=== PATIENT | male | born 1975 | race Caucasian/White ===

== ENCOUNTER 2018-05-01 05:05 | Emergency (ER) | payer BC ==
[2018-05-01] MEDS ORDERED: Alum Hydroxide/Mag Hydroxide 30 ML, Lidocaine 2% 15 ML PO ONE ×4 (05:53→06:18)
--- NOTE | 2018-05-01 05:58 | EDM.PDOC ---
ED HPI GENERAL MEDICAL PROBLEM - General Chief Complaint: Abdominal Pain Stated Complaint: STOMACH PAIN Time Seen by Provider: 05/01/18 05:45 Source of Information: Reports: Patient, Family History Limitations: Reports: No Limitations - History of Present Illness INITIAL COMMENTS - FREE TEXT/NARRATIVE: c/o epigastric pain x 2.5h ate shrimp and potato skins at 10p, [place] at [place] when left, awoke 3a, still awake when returned home at 4a taken no meds no prior abd surgery, no prior epigastirc pain, no radiation, no n/v, no f/c/d abdomen Pain Score (Numeric/FACES): 6 - Related Data Allergies Allergy/AdvReac Type Severity Reaction Status Date / Time Penicillins Allergy Hives Verified 05/01/18 05:23 Home Meds: Home Meds Albuterol [Ventolin HFA] 1 - 2 puff INH Q4H PRN 05/01/18 [History] Pantoprazole Sodium 40 mg PO DAILY 05/01/18 [History] Sucralfate 1 gm PO QID #20 tablet 05/01/18 [Rx] Past Medical History HEENT History: Reports: Other (See Below) Other HEENT History: Nasal congestion. Respiratory History: Reports: Asthma, Other (See Below) Other Respiratory History: Occasional asthma related to work environment, uses an inhaler PRN. Gastrointestinal History: Reports: GERD, Other (See Below) Other Gastrointestinal History: Takes medication for GERD daily. Social & Family History - Tobacco Use Smoking Status *Q: Current Every Day Smoker Years of Tobacco use: 20 Packs/Tins Daily: 1 - Alcohol Use Days Per Week of Alcohol Use: 7 Number of Drinks Per Day: 2 Total Drinks Per Week: 14 - Recreational Drug Use Recreational Drug Use: No Other Recreational Drug Type: Denies recreational drug use. 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 Denies: Nausea, Vomiting : Reports: No Symptoms Musculoskeletal: Reports: No Symptoms Skin: Reports: No Symptoms Neurological: Reports: No Symptoms Psychiatric: Reports: No Symptoms Hematologic/Lymphatic: Reports: No Symptoms Immunologic: Reports: No Symptoms ED EXAM, GI/ABD - Physical Exam Exam: See Below Exam Limited By: No Limitations General Appearance: Alert, WD/WN, Mild Distress, Other (leaning forward, rocking slightly) Nose: Normal Inspection, Normal Mucosa, No Blood Throat/Mouth: Normal Inspection, Normal Lips, Normal Teeth, Normal Gums, Normal Oropharynx, Normal Voice, No Airway Compromise Head: Atraumatic, Normocephalic Neck: Normal Inspection, Supple, Non-Tender, Full Range of Motion Respiratory/Chest: No Respiratory Distress, Lungs Clear, Normal Breath Sounds, No Accessory Muscle Use, Chest Non-Tender Cardiovascular: Regular Rate, Rhythm, No Edema, No Gallop, No JVD, No Murmur, No Rub GI/Abdominal Exam: Soft, No Organomegaly, No Distention, Other (1+ epigastric tender only) Back Exam: Normal Inspection, Full Range of Motion, NT Extremities: Normal Inspection, Normal Range of Motion, Non-Tender, No Pedal Edema Neurological: Alert, Oriented, CN II-XII Intact, Normal Cognition, No Motor/ Sensory Deficits Psychiatric: Normal Affect, Normal Mood Skin Exam: Warm, Dry, Intact, Normal Color, No Rash Lymphatic: No Adenopathy Course - Vital Signs Last Recorded V/S: Last Vital Signs Temp 36.0 C 05/01/18 09:30 Pulse 62 05/01/18 09:30 Resp 16 05/01/18 09:30 BP 125/84 05/01/18 09:30 Pulse Ox 99 05/01/18 09:30 - Orders/Labs/Meds Orders: Active Orders 24 hr Category Date Time Status Abdomen Pelvis w Cont [CT] Stat Exams 05/01/18 06:49 Taken Labs: Laboratory Tests 05/01/18 05/01/18 05/01/18 Range/Units 06:55 06:55 06:55 WBC 13.1 H (4.5-12.0) X10-3/uL RBC 5.09 (4.30-5.75) x10(6)uL Hgb 15.1 (11.5-15.5) g/dL Hct 46.1 (30.0-51.3) % MCV 90.6 (80-96) fL MCH 29.7 (27.7-33.6) pg MCHC 32.8 (32.2-35.4) g/dL RDW 13.1 (11.5-15.5) % Plt Count 205 (125-369) X10(3)uL MPV 7.5 (7.4-10.4) fL Add Manual Diff Yes Neutrophils % (Manual) 85 H (46-82) % Lymphocytes % (Manual) 14 (13-37) % Monocytes % (Manual) 1 L (4-12) % Sodium 139 (135-145) mmol/L Potassium 4.1 (3.5-5.3) mmol/L Chloride 104 (100-110) mmol/L Carbon Dioxide 25 (21-32) mmol/L BUN 16 (7-18) mg/dL Creatinine 0.9 (0.70-1.30) mg/dL Est Cr Clr Drug Dosing 112.72 mL/min Estimated GFR (MDRD) > 60 (>60) BUN/Creatinine Ratio 17.8 (9-20) Glucose 123 H (80-116) mg/dL Calcium 8.6 (8.6-10.2) mg/dL Total Bilirubin 0.4 (0.1-1.3) mg/dL AST 16 (5-25) IU/L ALT 19 (12-36) U/L Alkaline Phosphatase 89 (56-112) IU/L Troponin I < 0.017 L (<0.017-0.056) ng/mL C-Reactive Protein 0.9 (0.5-0.9) mg/dL Total Protein 7.5 (6.0-8.0) g/dL Albumin 3.6 (3.5-5.2) g/dL Globulin 3.9 g/dL Albumin/Globulin Ratio 0.9 Amylase 46 (25-115) U/L Meds: Medications Discontinued Medications Generic Name Dose Route Start Last Admin Trade Name Freq PRN Reason Stop Dose Admin Al Hydroxide/Mg Hydroxide 30 0 ml 05/01/18 05:53 05/01/18 06:02 ml/ Lidocaine HCl 15 ml PO 05/01/18 05:54 45 ml ONETIME ONE Administration Al Hydroxide/Mg Hydroxide 30 0 ml 05/01/18 06:18 05/01/18 06:22 ml/ Lidocaine HCl 15 ml PO 05/01/18 06:19 45 ml ONETIME ONE Administration Diatrizoate Meglum/Diatrizoate Sod 30 ml 05/01/18 09:02 05/01/18 09:14 Gastrografin 37% PO 05/01/18 09:03 30 ml . DIRECTED ONE Administration Iopamidol 100 ml 05/01/18 08:56 05/01/18 09:21 Isovue-370 (76%) IV 05/01/18 08:57 96 ml ONETIME ONE Administration Ketorolac Tromethamine 60 mg 05/01/18 06:23 05/01/18 06:26 Toradol IM 05/01/18 06:24 60 mg ONETIME ONE Administration - Re-Assessments/Exams Free Text/Narrative Re-Assessment/Exam: 05/01/18 09:58 labs neg except mild inc'd WBC c/w pain, CT abd/pelvis with and without contrast essentially neg. There is a 4 mm pul nodule of R lung, repeat CT in 1y indicated as pt is a smoker, he was informed. There are mild dilated mid and distal small bowel that are of doubtful clinical sig, an abd CTA could be considred if pt has reoccurrence. pt resting and feeling much better now, does take pantoprazole at home, will add AA and sucralfate for 5d f/u PCP in 5d pt appears to have GERD with secondary spasm Departure - Departure Time of Disposition: 10:01 Disposition: Home, Self-Care 01 Condition: Good Clinical Impression: GERD with esophagitis, Spasm of colon - Discharge Information *PRESCRIPTION DRUG MONITORING PROGRAM REVIEWED*: Not Applicable *COPY OF PRESCRIPTION DRUG MONITORING REPORT IN PATIENT SALVADOR: Not Applicable Prescriptions: Sucralfate 1 gm PO QID #20 tablet Instructions: Gastroesophageal Reflux Disease, Adult Referrals: PCP,None [Primary Care Provider] - Forms: ED Department Discharge, ED Return to Work/School Form Additional Instructions: To decrease acid production, continue pantoprazole 40 mg 1 tab daily. To neutralize acid, take a generic liquid antacid 30 ml 2 hours after meals and bedtime for 5 days, longer if needed. To coat and protect the esophagus and stomach, take sucralfate 1 gm crushed in several ounces of fluids 1 hour before meals and bedtime for 5 days. For pain, take acetaminophen 500 mg 2 tabs 4 times a day for the next several days. No work today. To decrease risk of flareup, eat a low fat diet for the next few days. See your doctor in 4 days. Return to ED if you are feeling worse. - My Orders Last 24 Hours: My Active Orders 05/01/18 06:49 Abdomen Pelvis w Cont [CT] Stat - Assessment/Plan Last 24 Hours: My Active Orders 05/01/18 06:49 Abdomen Pelvis w Cont [CT] Stat
[2018-05-01] MEDS ORDERED: Ketorolac 60 MG/2 ML SDV IM ONE (06:23)
[2018-05-01] MEDS ORDERED: Diatrizoate Meglumine/Diatrizoate Sodium 37% 30 ML Bottle PO ONE (09:02)
[2018-05-01] MEDS ORDERED: Iopamidol 755 Mg/ML 100 ML Bottle IV ONE (09:02)
[2018-05-01] MEDS: Iopamidol 755 Mg/ML 100 ML Bottle IV ONE ×2 (09:09→09:21)
== END 2018-05-01 10:10 | disposition home or self-care (01) ==
LOC: FB.ED 05:05
DX: K21.0 Gastro-esophageal reflux disease with esophagitis (principal); K58.9 Irritable bowel syndrome, unspecified; F17.210 Nicotine dependence, cigarettes, uncomplicated; J45.909 Unspecified asthma, uncomplicated; Z79.899 Other long term (current) drug therapy; Z88.0 Allergy status to penicillin
CPT/HCPCS: 36415; 74177; 80053; 82150; 84484; 85025; 86140; 96372; 99284; A9270; J1885; Q9963; Q9967

== ENCOUNTER 2021-04-08 05:36 | Emergency (ER) | payer BC ==
[2021-04-08] MEDS ORDERED: Ciprofloxacin 500 MG Tab PO ONE (05:37)
--- NOTE | 2021-04-08 06:10 | EDM.PDOC ---
ED HPI GENERAL MEDICAL PROBLEM - General Chief Complaint: Genitourinary Problem Stated Complaint: URINATING BLOOD Time Seen by Provider: 04/08/21 06:07 Source of Information: Reports: Patient History Limitations: Reports: No Limitations - History of Present Illness INITIAL COMMENTS - FREE TEXT/NARRATIVE: Romain complains of gross hematuria.This happened when he was about to have sex,he noted niles blood 'shooting' out of his penis. he now has mild pain in the penis. His girlfriend has pictures of the bood that came out. Romain is previously healthy Penis Pain Score (Numeric/FACES): 4 - Related Data Allergies Allergy/AdvReac Type Severity Reaction Status Date / Time Penicillins Allergy Hives Verified 05/01/18 05:23 Home Meds: Home Meds Albuterol [Ventolin HFA] 1 - 2 puff INH Q4H PRN 05/01/18 [History] Pantoprazole Sodium 40 mg PO DAILY 05/01/18 [History] Sucralfate 1 gm PO QID #20 tablet 05/01/18 [Rx] traMADol [Ultram] 50 mg PO Q6H PRN #12 tab 05/01/18 [Rx] Past Medical History HEENT History: Reports: Other (See Below) Other HEENT History: Nasal congestion. Respiratory History: Reports: Asthma, Other (See Below) Other Respiratory History: Occasional asthma related to work environment, uses an inhaler PRN. Gastrointestinal History: Reports: GERD, Other (See Below) Other Gastrointestinal History: Takes medication for GERD daily. Social & Family History - Tobacco Use Tobacco Use Status *Q: Current Every Day Tobacco User Years of Tobacco use: 20 Packs/Tins Daily: 0.5 - Caffeine Use Caffeine Use: Reports: None - Alcohol Use Days Per Week of Alcohol Use: 3 Number of Drinks Per Day: 8 Total Drinks Per Week: 24 - Recreational Drug Use Recreational Drug Use: No ED ROS GENERAL - Review of Systems Review Of Systems: Comprehensive ROS is negative, except as noted in HPI. ED EXAM, RENAL/ - Physical Exam Exam: See Below Exam Limited By: No Limitations General Appearance: Alert, WD/WN, No Apparent Distress (Male) Exam: No Hernia Rectal (Males) Exam: Normal Exam Back Exam: Normal Inspection Extremities: Normal Inspection Neurological: Alert, Normal Reflexes Psychiatric: Normal Affect Skin Exam: Warm Course - Vital Signs Last Recorded V/S: Last Vital Signs Temp 97.8 F 04/08/21 07:34 Pulse 81 04/08/21 07:34 Resp 17 04/08/21 07:34 BP 106/78 04/08/21 07:34 Pulse Ox 95 04/08/21 07:34 - Orders/Labs/Meds Orders: Active Orders 24 hr Category Date Time Status Abdomen Pelvis wo Cont [CT] Stat Exams 04/08/21 06:10 Ordered Labs: Laboratory Tests 04/08/21 04/08/21 04/08/21 Range/Units 06:11 06:40 06:40 WBC 15.2 H (3.2-10.1) x10-3/uL RBC 4.91 (3.90-5.90) x10(6)uL Hgb 14.6 (12.9-17.7) g/dL Hct 43.7 (38.3-50.1) % MCV 89.0 (80.8-98.7) fL MCH 29.8 (27.0-33.3) pg MCHC 33.4 (28.7-35.3) g/dL RDW 14.1 (12.4-15.0) % Plt Count 200 (117-477) x10(3)uL MPV 6.8 (6.7-11.0) fL Add Manual Diff Yes Neutrophils % (Manual) 83 H (46-82) % Lymphocytes % (Manual) 10 L (13-37) % Monocytes % (Manual) 7 (4-12) % PT 10.8 (9.0-11.1) sec INR 1.00 (1.00-1.24) Sodium (135-145) mmol/L Potassium (3.5-5.3) mmol/L Chloride (100-110) mmol/L Carbon Dioxide (21-32) mmol/L BUN (7-18) mg/dL Creatinine (0.70-1.30) mg/dL Est Cr Clr Drug Dosing Estimated GFR (MDRD) (>60) BUN/Creatinine Ratio (9-20) Glucose (80-116) mg/dL Calcium (8.6-10.2) mg/dL Total Bilirubin (0.1-1.3) mg/dL AST (5-25) IU/L ALT (12-36) U/L Alkaline Phosphatase (56-112) IU/L Total Protein (6.0-8.0) g/dL Albumin (3.5-5.2) g/dL Globulin g/dL Albumin/Globulin Ratio Urine Color Red (YELLOW) Urine Appearance Cloudy (CLEAR) Urine pH 6.5 (5.0-6.5) Ur Specific [place] 1.015 (1.010-1.025) Urine Protein 500 H (NEGATIVE) mg/dL Urine Glucose (UA) Normal (NORMAL) mg/dL Urine Ketones Negative (NEGATIVE) mg/dL Urine Occult Blood Large H (NEGATIVE) Urine Nitrite Negative (NEGATIVE) Urine Bilirubin Negative (NEGATIVE) Urine Urobilinogen Normal (NEGATIVE) mg/dL Ur Leukocyte Esterase Moderate H (NEGATIVE) Urine RBC Packed H (0-5) Urine WBC 5-10 H (0-5) Ur Squamous Epith Cells Rare (NS,R,O) Urine Bacteria Few H (NS) 04/08/21 Range/Units 06:40 WBC (3.2-10.1) x10-3/uL RBC (3.90-5.90) x10(6)uL Hgb (12.9-17.7) g/dL Hct (38.3-50.1) % MCV (80.8-98.7) fL MCH (27.0-33.3) pg MCHC (28.7-35.3) g/dL RDW (12.4-15.0) % Plt Count (117-477) x10(3)uL MPV (6.7-11.0) fL Add Manual Diff Neutrophils % (Manual) (46-82) % Lymphocytes % (Manual) (13-37) % Monocytes % (Manual) (4-12) % PT (9.0-11.1) sec INR (1.00-1.24) Sodium 143 (135-145) mmol/L Potassium 4.1 (3.5-5.3) mmol/L Chloride 106 (100-110) mmol/L Carbon Dioxide 24 (21-32) mmol/L BUN 13 (7-18) mg/dL Creatinine 1.1 (0.70-1.30) mg/dL Est Cr Clr Drug Dosing TNP Estimated GFR (MDRD) > 60 (>60) BUN/Creatinine Ratio 11.8 (9-20) Glucose 92 (80-116) mg/dL Calcium 8.4 L (8.6-10.2) mg/dL Total Bilirubin 0.6 (0.1-1.3) mg/dL AST 30 H D (5-25) IU/L ALT 42 H D (12-36) U/L Alkaline Phosphatase 102 (56-112) IU/L Total Protein 7.6 (6.0-8.0) g/dL Albumin 4.0 (3.5-5.2) g/dL Globulin 3.6 g/dL Albumin/Globulin Ratio 1.1 Urine Color (YELLOW) Urine Appearance (CLEAR) Urine pH (5.0-6.5) Ur Specific [place] (1.010-1.025) Urine Protein (NEGATIVE) mg/dL Urine Glucose (UA) (NORMAL) mg/dL Urine Ketones (NEGATIVE) mg/dL Urine Occult Blood (NEGATIVE) Urine Nitrite (NEGATIVE) Urine Bilirubin (NEGATIVE) Urine Urobilinogen (NEGATIVE) mg/dL Ur Leukocyte Esterase (NEGATIVE) Urine RBC (0-5) Urine WBC (0-5) Ur Squamous Epith Cells (NS,R,O) Urine Bacteria (NS) Departure - Departure Time of Disposition: 11:19 Disposition: Home, Self-Care 01 Condition: Good Clinical Impression: Hematuria Qualifiers: Hematuria type: unspecified type Qualified Code(s): R31.9 - Hematuria, unspecified - Discharge Information Instructions: Hematuria, Adult Referrals: Charlie Quinn MD [Primary Care Provider] - Forms: ED Department Discharge Additional Instructions: Take cipro 500mg 1 tab by mouth two times per day until gone. follow up with your primary care provider within the next week. Increase your daily intake of water. Sepsis Event Note (ED) - Evaluation Sepsis Screening Result: No Definite Risk - Focused Exam Vital Signs: Vital Signs Temp Pulse Resp BP Pulse Ox 04/08/21 07:34 97.8 F 81 17 106/78 95 04/08/21 05:46 97.8 F 88 18 112/75 95 - Problem List & Annotations (1) Hematuria SNOMED Code(s): 09547039 Code(s): R31.9 - HEMATURIA, UNSPECIFIED Status: Acute Qualifiers: Hematuria type: unspecified type Qualified Code(s): R31.9 - Hematuria, unspecified - Problem List Review Problem List Initiated/Reviewed/Updated: Yes - My Orders Last 24 Hours: My Active Orders 04/08/21 06:10 Abdomen Pelvis wo Cont [CT] Stat - Assessment/Plan Last 24 Hours: My Active Orders 04/08/21 06:10 Abdomen Pelvis wo Cont [CT] Stat Plan: UA showed packed RBCs and 5-[address] was negative. DC home in [facility]
== END 2021-04-08 07:40 | disposition home or self-care (01) ==
LOC: FB.ED 05:36
DX: R31.9 Hematuria, unspecified (principal); J45.909 Unspecified asthma, uncomplicated; K21.9 Gastro-esophageal reflux disease without esophagitis; Z72.0 Tobacco use; Z88.0 Allergy status to penicillin; Z79.899 Other long term (current) drug therapy
CPT/HCPCS: 36415; 74176; 80053; 81001; 85025; 85610; 99284; A9270

== ENCOUNTER 2022-10-30 13:42 | Emergency (ER) | payer BC ==
[2022-10-30] MEDS ORDERED: HYDROmorphone 2 MG/ML SDV IM ONE ×2 (14:03→15:01)
[2022-10-30] MEDS ORDERED: Ondansetron 8 MG Tab.DIS PO ONE (16:37)
== END 2022-10-30 17:05 | disposition home or self-care (01) ==
LOC: FB.ED 13:42
DX: M51.16 Intervertebral disc disorders with radiculopathy, lumbar region (principal); J45.909 Unspecified asthma, uncomplicated; K21.9 Gastro-esophageal reflux disease without esophagitis; Z88.0 Allergy status to penicillin; Z79.899 Other long term (current) drug therapy
CPT/HCPCS: 72148; 99283; A9270; J1170

== ENCOUNTER 2023-05-18 02:47 | Emergency (ER) | payer BC ==
[2023-05-18] MEDS ORDERED: Ketorolac 30 MG/ML SDV IVPUSH ONE (02:53)
[2023-05-18] MEDS ORDERED: Cyclobenzaprine 10 MG Tab PO ONE (02:57)
[2023-05-18 03:55] LABS: BASOPHILS ABSOLUTE AUTO 0.1 x10-3/uL (0.0-0.3); BASOPHILS PERCENT AUTO 0.6 % (0.3-3.8); EOSINOPHILS ABSOLUTE AUTO 0.1 x10-3/uL (0.0-0.6); EOSINOPHILS PERCENT AUTO 0.6 % (0.1-6.8); HEMATOCRIT 42.1 % (38.3-50.1); HEMOGLOBIN 13.8 g/dL (12.9-17.7); LYMPHOCYTES ABSOLUTE AUTO 1.6 x10-3/uL (0.5-4.5); LYMPHOCYTES PERCENT AUTO 16.6 % (15.8-45.3); MEAN CORPUSCULAR HEMOGLOBIN 29.7 pg (27.0-33.3); MEAN CORPUSCULAR HGB CONC 32.9 g/dL (28.7-35.3); MEAN CORPUSCULAR VOLUME 90.5 fL (80.8-98.7); MEAN PLATELET VOLUME 6.8 fL (6.7-11.0); MONOCYTES ABSOLUTE AUTO 0.7 x10-3/uL (0.0-1.2); MONOCYTES PERCENT AUTO 6.9 % (5.5-15.2); NEUTROPHILS ABSOLUTE AUTO 7.3 x10-3/uL (1.7-6.9); NEUTROPHILS PERCENT AUTO 75.3 % (40.3-71.8); PLATELET COUNT,PLT 225 x10(3)uL (117-477); RED BLOOD CELL COUNT 4.66 x10(6)uL (3.90-5.90); RED CELL DISTRIBUTION WIDTH 13.9 % (12.4-15.0); WHITE BLOOD CELL COUNT,WBC 9.8 x10-3/uL (3.2-10.1)
[2023-05-18 03:57] LABS: BLOOD UREA NITROGEN,BUN 13 mg/dL (7-18); CALCIUM 8.5 mg/dL (8.6-10.2); CARBON DIOXIDE,CO2 26 mmol/L (21-32); CHLORIDE,CL 104 mmol/L (100-110); CREATININE 1.3 mg/dL (0.70-1.30); ESTIMATED GFR 68 mL/min (>60); GLUCOSE RANDOM 115 mg/dL (80-116); POTASSIUM,K 3.6 mmol/L (3.5-5.3); SODIUM,NA 141 mmol/L (135-145)
[2023-05-18 04:03] LABS: A/G RATIO 0.9; ALANINE AMINOTRANSFERASE,ALT 31 U/L (12-36); ALBUMIN 3.6 g/dL (3.5-5.2); ALKALINE PHOSPHATASE 98 IU/L (56-112); ASPARTATE AMNIOTRANSFERASE,AST 20 IU/L (5-25); BILIRUBIN TOTAL 0.3 mg/dL (0.1-1.3); PROTEIN TOTAL,TP 7.7 g/dL (6.0-8.0)
[2023-05-18 04:05] LABS: INR 0.99 (1.00-1.24); PROTHROMBIN TIME 10.2 sec (9.0-11.1)
== END 2023-05-18 05:15 | disposition home or self-care (01) ==
LOC: FB.ED 02:47
DX: S16.1XXA Strain of muscle, fascia and tendon at neck level, initial encounter (principal); S39.012A Strain of muscle, fascia and tendon of lower back, initial encounter; S70.00XA Contusion of unspecified hip, initial encounter; M54.2 Cervicalgia; F10.129 Alcohol abuse with intoxication, unspecified; Y90.0 Blood alcohol level of less than 20 mg/100 ml; Z88.0 Allergy status to penicillin; X58.XXXA Exposure to other specified factors, initial encounter
CPT/HCPCS: 36415; 72040; 72100; 73502; 80053; 80307; 85025; 85610; 85730; 96374; 99284; A9270; J1885

== ENCOUNTER 2023-06-11 08:34 | Day surgery (SDC) | payer BC ==
[~2023-06-11 08:34] MED LIST: Lactated Ringers 1,000 ML IV SCH; Sodium Chloride 0.9% 10 ML Syringe FLUSH PRN
[2023-06-11] MEDS ORDERED: Propofol 200 MG/20 ML SDV IV ONE (08:35)
== END 2023-06-11 10:50 | disposition home or self-care (01) ==
LOC: FB.SDS 08:34
PROVIDERS: ATTEND Surgery
DX: Z12.11 Encounter for screening for malignant neoplasm of colon (principal); K57.30 Diverticulosis of large intestine without perforation or abscess without bleeding; K58.0 Irritable bowel syndrome with diarrhea; M25.511 Pain in right shoulder; G89.29 Other chronic pain; K21.9 Gastro-esophageal reflux disease without esophagitis; I10 Essential (primary) hypertension; G47.33 Obstructive sleep apnea (adult) (pediatric); E66.01 Morbid (severe) obesity due to excess calories; F17.210 Nicotine dependence, cigarettes, uncomplicated; Z88.0 Allergy status to penicillin; Z79.899 Other long term (current) drug therapy
CPT/HCPCS: J2704; J7120